=== PATIENT | female | born 1970 | race American Indian/Alaskan Native ===

== ENCOUNTER 2021-08-01 09:24 | Emergency (ER) | payer SELFPAY ==
[2021-08-01] MEDS ORDERED: hydrALAZINE 20 MG/1 ML INJ IV SCH (12:30)
[2021-08-01] MEDS ORDERED: cloNIDine 0.1 MG TAB PO SCH (12:30)
--- NOTE | 2021-08-01 12:30 | Emergency Department Report ---
ED Abdominal Pain HPI - General Chief Complaint: Abdominal Pain Stated Complaint: FATIGUE/STOMACH PAIN Time Seen by Provider: 08/01/21 12:22 Source: patient Mode of arrival: Ambulatory Limitations: No Limitations - History of Present Illness Initial Comments: Patient is 51 years old female with history of hypertension however she was off her medicine for few years because doctor took her off her medicine. Patient presented to the ER complaining of abdominal pain. Patient describes her abdominal pain as fullness comes and goes for the last few weeks. Patient denied any fever or chills. No nausea or vomiting. Patient found to be with a blood pressure of 196/119. MD Complaint: abdominal pain -: Gradual Location: diffuse Radiation: none Migration to: no migration Severity scale (0 -10): 5 Quality: fullness Associated Symptoms: denies other symptoms - Related Data Allergies Allergy/AdvReac Type Severity Reaction Status Date / Time No Known Allergies Allergy Verified 08/01/21 12:37 ED Review of Systems ROS: Stated complaint: FATIGUE/STOMACH PAIN Other details as noted in HPI Comment: All other systems reviewed and negative Constitutional: denies: chills, fever Respiratory: denies: cough Cardiovascular: denies: chest pain, palpitations Gastrointestinal: abdominal pain. denies: nausea, vomiting, diarrhea, constipation, hematemesis, melena, hematochezia Musculoskeletal: denies: back pain Neurological: denies: headache, weakness, numbness, paresthesias ED Physical Exam - General Limitations: No Limitations General appearance: alert, in no apparent distress - Head Head exam: Present: atraumatic, normocephalic, normal inspection - Eye Eye exam: Present: normal appearance - ENT ENT exam: Present: normal exam, normal orophraynx, mucous membranes moist - Neck Neck exam: Present: normal inspection, full ROM. Absent: tenderness, meningismus - Respiratory Respiratory exam: Present: normal lung sounds bilaterally - Cardiovascular Cardiovascular Exam: Present: regular rate, normal rhythm, normal heart sounds - GI/Abdominal GI/Abdominal exam: Present: soft, normal bowel sounds. Absent: distended, tende rness, guarding, rebound, rigid, organomegaly, mass, bruit, pulsatile mass, hernia - Extremities Exam Extremities exam: Present: normal inspection, full ROM, normal capillary refill. Absent: tenderness, pedal edema, joint swelling, calf tenderness - Back Exam Back exam: Present: normal inspection, full ROM. Absent: CVA tenderness (R), CVA tenderness (L) - Neurological Exam Neurological exam: Present: alert, oriented X3, CN II-XII intact, normal gait, reflexes normal - Psychiatric Psychiatric exam: Present: normal mood - Skin Skin exam: Present: warm, intact, normal color ED Course Vital Signs 08/01/21 08/01/21 08/01/21 11:34 12:03 12:15 Temperature 98.8 F Pulse Rate 73 67 Respiratory 16 16 16 Rate Blood Pressure 199/111 209/118 O2 Sat by Pulse 100 100 Oximetry 08/01/21 08/01/21 08/01/21 12:31 12:45 13:01 Temperature Pulse Rate 68 67 72 Respiratory 18 13 12 Rate Blood Pressure 199/116 199/116 199/116 O2 Sat by Pulse 100 100 100 Oximetry 08/01/21 08/01/21 08/01/21 13:07 13:15 13:31 Temperature Pulse Rate 67 72 Respiratory 12 13 Rate Blood Pressure 215/119 225/111 O2 Sat by Pulse 100 100 100 Oximetry 08/01/21 08/01/21 08/01/21 13:45 14:01 14:15 Temperature Pulse Rate 75 Respiratory 17 Rate Blood Pressure 210/102 210/102 210/102 O2 Sat by Pulse 100 99 100 Oximetry ED Medical Decision Making - Lab Data Result diagrams: 08/01/21 12:41 08/01/21 12:41 - EKG Data -: EKG Interpreted by Me EKG shows normal: sinus rhythm Rate: normal - EKG Data Interpretation: no acute changes - Medical Decision Making Patient is 51 years old female with history of hypertension however she was off her medicine for few years because doctor took her off her medicine. Patient presented to the ER complaining of abdominal pain. Patient describes her abdominal pain as fullness comes and goes for the last few weeks. Patient denied any fever or chills. No nausea or vomiting. Critical care attestation.: If time is entered above; I have spent that time in minutes in the direct care of this critically ill patient, excluding procedure time. ED Disposition Clinical Impression: Acute abdominal pain, Malignant hypertension Condition: Stable Instructions: Abdominal Pain (ED), Abdominal Pain, Adult, [id number], Hypertension (ED) Referrals: [facility] [Provider Group] - 3-5 Days
--- NOTE | 2021-08-01 13:11 | XRay Report ---
CHEST 1 VIEW INDICATION: chest pain. COMPARISON: None FINDINGS: Support devices: None. Heart: Within normal limits. Lungs/Pleura: No acute air space or interstitial disease. No pleural abnormality or pneumothorax. Additional findings: None. IMPRESSION: No acute findings. Signer Name: Jas Mendez Jr, MD Signed: 08/01/2021 1:06 PM Workstation Name: [id number]
[2021-08-01 13:15] LABS: Basophils % (Auto) 0.5 % (0.0-1.8); Eosinophils % (Auto) 0.2 % (0.0-4.3); Hematocrit 41.8 % (30.3-42.9); Hemoglobin 14.5 gm/dl (10.1-14.3); Lymphocytes # (Auto) 2.1 K/mm3 (1.2-5.4); Lymphocytes % (Auto) 47.7 % (13.4-35.0); Mean Corpuscular HGB Conc 35 % (30-34); Mean Corpuscular Volume 95 fl (79-97); Monocytes # (Auto) 0.2 K/mm3 (0.0-0.8); Monocytes % (Auto) 4.9 % (0.0-7.3); Platelet Count 285 K/mm3 (140-440); Red Blood Count 4.39 M/mm3 (3.65-5.03); Red Cell Distribution Width 13.8 % (13.2-15.2)
[2021-08-01 13:23] LABS: INR 0.84 (0.87-1.13)
[2021-08-01 13:43] LABS: Alanine Aminotransferase 13 units/L (7-56); Albumin 4.7 g/dL (3.9-5); BUN/Creatinine Ratio 13; Blood Urea Nitrogen 10 mg/dL (7-17); Calcium 9.9 mg/dL (8.4-10.2); Hemolysis Index 4
[2021-08-01 13:50] LABS: Bilirubin,Direct < 0.2 mg/dL (0-0.2)
[2021-08-01] MEDS ORDERED: hydrALAZINE 20 MG/1 ML INJ IV ONE (14:51)
--- NOTE | 2021-08-01 15:27 | Cat Scan Report ---
CT ABDOMEN AND PELVIS WITH CONTRAST INDICATION: abdominal pain CONTRAST: 100 cc Omnipaque 300 IV COMPARISON: None available. All CT scans at this location are performed using CT dose reduction for ALARA by means of automated e xposure control. FINDINGS: Lung bases are clear. No pneumoperitoneum is seen. Liver shows a probable hemangioma in the inferior aspect of the right lobe measuring 9 mm. No other abdominal masses are seen. No lymphadenop athy is noted. No urinary obstructive changes are seen. Gallbladder shows small calculi but no wall t hickening or obvious inflammation. No biliary dilatation is seen. Appendix appears within normal limits. No focal bowel lesions are seen. No evidence of bowel obstruct ion is noted. Some pelvic small bowel loops are mildly distended with fluid without obvious wall thic kening. No pelvic masses are seen. Only trace free fluid is noted in the pelvis which is nonspecific. IMPRESSION: 1. Small bowel fluid filling in the pelvis might be associated with mild enteritis but I do not suspe ct obstruction 2. Cholelithiasis without acute change 3. Probable small hemangioma in the liver. I doubt this is significant but suggest follow-up. Signer Name: Alvin Wei MD Signed: 08/01/2021 3:23 PM Workstation Name: [id number]
[2021-08-01 17:07] VITALS: BP 154/83
--- NOTE | 2021-08-02 11:31 | Electrocardiograph Report ---
[facility] Test Date: 2021-08-01 Test Time: 11:40:42 Pat Name: LEWIS PAULA Department: Room: Gender: F Staffing Program Manager: ANASTACIO : 1970 Requested By: INEZ LY Order Number: [id number] Reading MD: Trevor Hackett Measurements Intervals [place] Rate: 73 P: 87 SC: 162 QRS: 82 QRSD: 84 T: 73 QT: 406 QTc: 447 Interpretive Statements Sinus rhythm Biatrial enlargement Nonspecific T abnrm, anterolateral leads No previous ECG available for comparison Electronically Signed On 08-02-2021 11:30:44 EDT by Trevor Hackett
== END 2021-08-01 17:00 | disposition home or self-care (01) ==
LOC: ED 09:24
DX: R10.9 Unspecified abdominal pain (principal); I10 Essential (primary) hypertension
CPT/HCPCS: 36415; 71045; 74177; 80048; 80076; 83690; 84484; 84703; 85025; 85610; 93005; 96374; 96376; 99284; J0360; Q9967